=== PATIENT | female | born 1945 | race Caucasian/White ===

== ENCOUNTER 2017-07-29 09:54 | Inpatient (IN) | payer OTHER ==
[~2017-07-29] VITALS: Ht 170.2 cm; Wt 59.6 kg
[~2017-07-29 09:54] MED LIST: (None)20 M1 PO; ALBU3IS INH; ALBU90OI INH; ALBU90OI6 INH; AMOCLA875 PO; AZIT250 PO; CLIMARA1 PATCH.W1 TD; CYCL10 PO; DALIRESP500 MCG PO; Diflucan100 MG PO; FLUSAL2505 INH; HYDR-86; HYDR-86 PO; HYDR1TAB94 PO; IBUP800 PO; Indapamide1.25 MG PO; LEVSOD50 PO; LEVSOD88 PO; METPRE4DP PO; SULTRIDS PO; TIOT18 INH; Ventolin Soln3 ML INH; ZOLP10 PO; Zithromax250 MG PO
[2017-07-29] MEDS ORDERED: TOBRAMYCIN300 MG/5 M IH (10:31)
[2017-07-29 10:34] LABS: BASOPHILS ABSOLUTE AUTO 0.07 K/mm3 (0.00-0.23); BASOPHILS PERCENT AUTO 1 % (0-2); EOSINOPHILS ABSOLUTE AUTO 0.26 K/mm3 (0.00-0.68); EOSINOPHILS PERCENT AUTO 3 % (0-6); Hematocrit 42.3 % (33.0-51.0); Hemoglobin 13.4 g/dL (11.5-16.0); IMMATURE GRAN ABSOLUTE AUTO 0.03 K/mm3 (0.00-0.10); IMMATURE GRAN PERCENT AUTO 0 % (0-1); LYMPHOCYTES ABSOLUTE AUTO 2.51 K/mm3 (0.84-5.20); LYMPHOCYTES PERCENT AUTO 31 % (21-46); MONOCYTES ABSOLUTE AUTO 1.31 K/mm3 (0.16-1.47); MONOCYTES PERCENT AUTO 16 % (4-13); Mean Corpuscular HGB 29.5 pg (26.0-34.0); Mean Corpuscular HGB Conc 31.7 g/dL (31.5-36.5); Mean Corpuscular Volume 93 fL (80-100); Mean Platelet Volume 10.2 fL (9.1-12.4); NEUTROPHILS ABSOLUTE AUTO 3.98 K/mm3 (1.96-9.15); NEUTROPHILS PERCENT AUTO 49 % (41-73); Platelet Count 334 K/mm3 (150-400); RDW Coefficient Variation 13.7 % (11.7-14.2); RDW Standard Deviation 46.6 fL (35.1-46.3); Red Blood Cell Count 4.55 M/mm3 (3.80-5.20); White Blood Cell Count 8.16 K/mm3 (4.00-11.30)
[2017-07-29 10:58] LABS: Alanine Aminotransfer (ALT/SGP 24 U/L (12-78); Albumin, Blood 3.3 g/dL (3.4-5.0); Albumin/Globulin Ratio 1.1 (0.8-1.8); Alk Phos 67 U/L (50-136); Anion Gap 4 mmol/L (6-16); Aspartate Aminotrans (AST/SGOT 18 U/L (12-37); Bilirubin, Total 0.6 mg/dL (0.1-1.0); Blood Urea Nitrogen 15 mg/dL (8-24); Bun/Creatinine Ratio 35.8 (12.0-20.0); CO2, Blood 36 mmol/L (21-32); Calcium, Blood 8.3 mg/dL (8.5-10.1); Chloride, Blood 93 mmol/L (98-108); Creatinine, Blood 0.42 mg/dL (0.40-1.00); Globulin, Blood 3.1 g/dL (2.2-4.0); Glomerular Filtration Rate >60 (60-); Glucose, Blood 78 mg/dL (70-99); Potassium, Blood 3.6 mmol/L (3.5-5.5); Sodium, Blood 133 mmol/L (136-145); Total Protein, Blood 6.4 g/dL (6.4-8.2); Troponin I <0.015 ng/mL (0.000-0.040)
[2017-07-30 05:59] LABS: BASOPHILS PERCENT AUTO 0 % (0-2); EOSINOPHILS PERCENT AUTO 0 % (0-6); Hematocrit 42.4 % (33.0-51.0); Hemoglobin 13.7 g/dL (11.5-16.0); IMMATURE GRAN ABSOLUTE AUTO 0.01 K/mm3 (0.00-0.10); IMMATURE GRAN PERCENT AUTO 0 % (0-1); LYMPHOCYTES ABSOLUTE AUTO 0.95 K/mm3 (0.84-5.20); LYMPHOCYTES PERCENT AUTO 15 % (21-46); MONOCYTES ABSOLUTE AUTO 0.19 K/mm3 (0.16-1.47); MONOCYTES PERCENT AUTO 3 % (4-13); Mean Corpuscular HGB 29.7 pg (26.0-34.0); Mean Corpuscular HGB Conc 32.3 g/dL (31.5-36.5); Mean Corpuscular Volume 92 fL (80-100); NEUTROPHILS PERCENT AUTO 82 % (41-73); Platelet Count 313 K/mm3 (150-400); RDW Coefficient Variation 13.8 % (11.7-14.2); RDW Standard Deviation 45.9 fL (35.1-46.3); Red Blood Cell Count 4.62 M/mm3 (3.80-5.20); White Blood Cell Count 6.35 K/mm3 (4.00-11.30)
[2017-07-30 07:42] LABS: Albumin, Blood 3.2 g/dL (3.4-5.0); Anion Gap 9 mmol/L (6-16); Blood Urea Nitrogen 10 mg/dL (8-24); CO2, Blood 26 mmol/L (21-32); Calcium, Blood 8.5 mg/dL (8.5-10.1); Chloride, Blood 100 mmol/L (98-108); Creatinine, Blood 0.37 mg/dL (0.40-1.00); Glomerular Filtration Rate >60 (60-); Glucose, Blood 168 mg/dL (70-99); Phosphorus, Blood 3.7 mg/dL (2.5-4.9); Sodium, Blood 135 mmol/L (136-145)
[2017-07-30 16:38] LABS: Tobramycin, Random 0.4 ug/mL
[2017-08-01 19:21] LABS: Tobramycin, Trough <0.3 ug/mL (0.0-1.9)
[2017-08-02] MEDS ORDERED: GUAI600T33 PO (12:23)
[2017-08-02] MEDS ORDERED: CLIMARA1 EACH TOP (12:23)
[2017-08-02] MEDS ORDERED: SENN187 PO (12:26)
[2017-08-02] MEDS ORDERED: GAVILAX17 GM PO (12:26)
[2017-08-02] MEDS ORDERED: DELTASONE20 MG PO (12:26)
[2017-08-02] MEDS ORDERED: [UNRECOGNIZED DRUG - OTHER] VAG (12:28)
[2017-08-02] MEDS ORDERED: LEVFLO500 PO (12:28)
[2017-08-02] MEDS ORDERED: PRED20 PO (12:29)
[2017-08-02] MEDS ORDERED: Tobramycin60 MG/50 M IV (12:31)
[2017-08-02 14:01] LABS: Tobramycin, Random <0.3 ug/mL
[2017-08-03] MEDS ORDERED: CYCL10 PO (16:56)
[2017-08-03] MEDS ORDERED: CLIMARA1 PATCH.W1 TOP (17:46)
[2017-08-03] MEDS ORDERED: DALIRESP500 MCG PO (17:46)
[2017-08-03] MEDS ORDERED: Hair, Skin & N1 EACH PO (17:47)
[2017-08-03] MEDS ORDERED: CHOL10002 PO (17:48)
[2017-08-03] MEDS ORDERED: Echinacea500 MG PO (17:49)
[2017-08-03] MEDS ORDERED: Super B Comple150 MG PO (17:49)
[2018-02-26] MEDS ORDERED: ALBUTEROL INH (13:49)
[2018-02-26] MEDS ORDERED: MORP20L PO (13:52)
[2018-02-26] MEDS ORDERED: AZIT250 PO (13:53)
[2018-02-26] MEDS ORDERED: SPIRIVA RESPIMAT4 GM INH (13:54)
[2018-02-26] MEDS ORDERED: ESTRADIOL1 EAC1 TD (13:54)
[2018-02-26] MEDS ORDERED: ALBU3IS INH (13:55)
[2018-02-26] MEDS ORDERED: LORA.5 PO (13:56)
[2018-02-26] MEDS ORDERED: COMPAZINE10 MG PO (13:58)
[2018-02-26] MEDS ORDERED: Zofran Odt8 MG SL (16:33)
== END 2017-08-02 19:41 | disposition home or self-care (01) | DRG 189 ==
LOC: ER 09:54 → MEDS 13:31 → ENPENDDIS 08-02 10:00 → MEDS 08-02 19:41
PROVIDERS: Emergency Medicine; Family Medicine
PROC: 02HV33Z Insertion of Infusion Device into Superior Vena Cava, Percutaneous Approach (ICD-10-PCS; principal; 2017-08-01)
PROC: B548ZZA Ultrasonography of Superior Vena Cava, Guidance (ICD-10-PCS; 2017-08-01)
DX: J96.01 Acute respiratory failure with hypoxia (principal); B96.5 Pseudomonas (aeruginosa) (mallei) (pseudomallei) as the cause of diseases classified elsewhere; F11.20 Opioid dependence, uncomplicated; Z99.81 Dependence on supplemental oxygen; J44.1 Chronic obstructive pulmonary disease with (acute) exacerbation; B96.1 Klebsiella pneumoniae [K. pneumoniae] as the cause of diseases classified elsewhere; I10 Essential (primary) hypertension; E78.5 Hyperlipidemia, unspecified; G89.4 Chronic pain syndrome; F41.9 Anxiety disorder, unspecified; E03.9 Hypothyroidism, unspecified; R04.0 Epistaxis; J34.89 Other specified disorders of nose and nasal sinuses; Z88.1 Allergy status to other antibiotic agents; Z88.5 Allergy status to narcotic agent; Z87.891 Personal history of nicotine dependence; Z79.51 Long term (current) use of inhaled steroids; Z79.899 Other long term (current) drug therapy
CPT/HCPCS: 36415; 36569; 71020; 80053; 80069; 80200; 84484; 85025; 93005; 93010; 94010; 94640; 94664; 94667; 94668; 94760; 96361; 96374; 98960; 99285; C1751; J1956; J2930; J3260; J7030; J7050; Q2038

== ENCOUNTER 2017-08-03 00:38 | Day surgery (SDC) | payer OTHER ==
[~2017-08-03 00:38] MED LIST changes: +CLIMARA1 EACH TOP; +DELTASONE20 MG PO; +GAVILAX17 GM PO; +GUAI600T33 PO; +LEVFLO500 PO; +PRED20 PO; +SENN187 PO; +TOBRAMYCIN300 MG/5 M IH; +Tobramycin60 MG/50 M IV; +[UNRECOGNIZED DRUG - OTHER] VAG
[2017-08-03] MEDS ORDERED: CYCL10 PO (16:56)
[2017-08-03] MEDS ORDERED: CLIMARA1 PATCH.W1 TOP (17:46)
[2017-08-03] MEDS ORDERED: DALIRESP500 MCG PO (17:46)
[2017-08-03] MEDS ORDERED: Hair, Skin & N1 EACH PO (17:47)
[2017-08-03] MEDS ORDERED: CHOL10002 PO (17:48)
[2017-08-03] MEDS ORDERED: Echinacea500 MG PO (17:49)
[2017-08-03] MEDS ORDERED: Super B Comple150 MG PO (17:49)
[2018-02-26] MEDS ORDERED: ALBUTEROL INH (13:49)
[2018-02-26] MEDS ORDERED: MORP20L PO (13:52)
[2018-02-26] MEDS ORDERED: AZIT250 PO (13:53)
[2018-02-26] MEDS ORDERED: SPIRIVA RESPIMAT4 GM INH (13:54)
[2018-02-26] MEDS ORDERED: ESTRADIOL1 EAC1 TD (13:54)
[2018-02-26] MEDS ORDERED: ALBU3IS INH (13:55)
[2018-02-26] MEDS ORDERED: LORA.5 PO (13:56)
[2018-02-26] MEDS ORDERED: COMPAZINE10 MG PO (13:58)
[2018-02-26] MEDS ORDERED: Zofran Odt8 MG SL (16:33)
== END 2017-08-03 17:30 | disposition home or self-care (01) ==
LOC: ATC 00:38
DX: J44.1 Chronic obstructive pulmonary disease with (acute) exacerbation (principal); J15.1 Pneumonia due to Pseudomonas; J34.89 Other specified disorders of nose and nasal sinuses; I10 Essential (primary) hypertension; E03.9 Hypothyroidism, unspecified; E78.5 Hyperlipidemia, unspecified; Z79.899 Other long term (current) drug therapy; Z88.1 Allergy status to other antibiotic agents; Z87.891 Personal history of nicotine dependence
CPT/HCPCS: 96365; 96375; J1580; J2930; J3260; J7050

== ENCOUNTER 2017-08-04 00:40 | Day surgery (SDC) | payer OTHER ==
[~2017-08-04 00:40] MED LIST changes: +CHOL10002 PO; +CLIMARA1 PATCH.W1 TOP; +Echinacea500 MG PO; +Hair, Skin & N1 EACH PO; +Super B Comple150 MG PO
[2018-02-26] MEDS ORDERED: ALBUTEROL INH (13:49)
[2018-02-26] MEDS ORDERED: MORP20L PO (13:52)
[2018-02-26] MEDS ORDERED: AZIT250 PO (13:53)
[2018-02-26] MEDS ORDERED: ESTRADIOL1 EAC1 TD (13:54)
[2018-02-26] MEDS ORDERED: SPIRIVA RESPIMAT4 GM INH (13:54)
[2018-02-26] MEDS ORDERED: ALBU3IS INH (13:55)
[2018-02-26] MEDS ORDERED: LORA.5 PO (13:56)
[2018-02-26] MEDS ORDERED: COMPAZINE10 MG PO (13:58)
[2018-02-26] MEDS ORDERED: Zofran Odt8 MG SL (16:33)
== END 2017-08-04 16:47 | disposition home or self-care (01) ==
LOC: ATC 00:40
DX: J44.1 Chronic obstructive pulmonary disease with (acute) exacerbation (principal); J15.1 Pneumonia due to Pseudomonas; I10 Essential (primary) hypertension; E03.9 Hypothyroidism, unspecified; E78.5 Hyperlipidemia, unspecified; Z79.899 Other long term (current) drug therapy; Z88.1 Allergy status to other antibiotic agents; Z88.8 Allergy status to other drugs, medicaments and biological substances; Z87.891 Personal history of nicotine dependence
CPT/HCPCS: 96365; 96375; J2930; J3260

== ENCOUNTER 2017-08-05 00:18 | Day surgery (SDC) | payer OTHER ==
[2017-08-05 16:19] LABS: Creatinine, Blood 0.44 mg/dL (0.40-1.00); Tobramycin, Trough <0.3 ug/mL (0.0-1.9)
[2018-02-26] MEDS ORDERED: ALBUTEROL INH (13:49)
[2018-02-26] MEDS ORDERED: MORP20L PO (13:52)
[2018-02-26] MEDS ORDERED: AZIT250 PO (13:53)
[2018-02-26] MEDS ORDERED: ESTRADIOL1 EAC1 TD (13:54)
[2018-02-26] MEDS ORDERED: SPIRIVA RESPIMAT4 GM INH (13:54)
[2018-02-26] MEDS ORDERED: ALBU3IS INH (13:55)
[2018-02-26] MEDS ORDERED: LORA.5 PO (13:56)
[2018-02-26] MEDS ORDERED: COMPAZINE10 MG PO (13:58)
[2018-02-26] MEDS ORDERED: Zofran Odt8 MG SL (16:33)
== END 2017-08-05 17:30 | disposition home or self-care (01) ==
LOC: ATC 00:18
PROVIDERS: Family Medicine
DX: J44.1 Chronic obstructive pulmonary disease with (acute) exacerbation (principal); J15.1 Pneumonia due to Pseudomonas; J34.89 Other specified disorders of nose and nasal sinuses; R04.0 Epistaxis
CPT/HCPCS: 80200; 82565; 96365; 96375; J2930; J3260

== ENCOUNTER 2017-08-06 00:10 | Day surgery (SDC) | payer OTHER ==
[2018-02-26] MEDS ORDERED: ALBUTEROL INH (13:49)
[2018-02-26] MEDS ORDERED: MORP20L PO (13:52)
[2018-02-26] MEDS ORDERED: AZIT250 PO (13:53)
[2018-02-26] MEDS ORDERED: ESTRADIOL1 EAC1 TD (13:54)
[2018-02-26] MEDS ORDERED: SPIRIVA RESPIMAT4 GM INH (13:54)
[2018-02-26] MEDS ORDERED: ALBU3IS INH (13:55)
[2018-02-26] MEDS ORDERED: LORA.5 PO (13:56)
[2018-02-26] MEDS ORDERED: COMPAZINE10 MG PO (13:58)
[2018-02-26] MEDS ORDERED: Zofran Odt8 MG SL (16:33)
== END 2017-08-06 16:13 | disposition home or self-care (01) ==
LOC: ATC 00:10
DX: J44.1 Chronic obstructive pulmonary disease with (acute) exacerbation (principal); I10 Essential (primary) hypertension; E03.9 Hypothyroidism, unspecified; E78.5 Hyperlipidemia, unspecified; Z79.899 Other long term (current) drug therapy; Z88.1 Allergy status to other antibiotic agents
CPT/HCPCS: 96365; 96375; J2930; J3260

== ENCOUNTER 2017-08-07 00:27 | Day surgery (SDC) | payer OTHER ==
[2018-02-26] MEDS ORDERED: ALBUTEROL INH (13:49)
[2018-02-26] MEDS ORDERED: MORP20L PO (13:52)
[2018-02-26] MEDS ORDERED: AZIT250 PO (13:53)
[2018-02-26] MEDS ORDERED: ESTRADIOL1 EAC1 TD (13:54)
[2018-02-26] MEDS ORDERED: SPIRIVA RESPIMAT4 GM INH (13:54)
[2018-02-26] MEDS ORDERED: ALBU3IS INH (13:55)
[2018-02-26] MEDS ORDERED: LORA.5 PO (13:56)
[2018-02-26] MEDS ORDERED: COMPAZINE10 MG PO (13:58)
[2018-02-26] MEDS ORDERED: Zofran Odt8 MG SL (16:33)
== END 2017-08-07 22:52 | disposition home or self-care (01) ==
LOC: ATC 00:27
DX: J44.1 Chronic obstructive pulmonary disease with (acute) exacerbation (principal); I10 Essential (primary) hypertension; F32.9 Major depressive disorder, single episode, unspecified; E03.9 Hypothyroidism, unspecified; G89.4 Chronic pain syndrome; E78.5 Hyperlipidemia, unspecified
CPT/HCPCS: 96365; 96375; J2930; J3260

== ENCOUNTER 2017-08-08 00:42 | Day surgery (SDC) | payer OTHER ==
[2017-08-08 15:38] LABS: Tobramycin, Random <0.3 ug/mL
[2018-02-26] MEDS ORDERED: ALBUTEROL INH (13:49)
[2018-02-26] MEDS ORDERED: MORP20L PO (13:52)
[2018-02-26] MEDS ORDERED: AZIT250 PO (13:53)
[2018-02-26] MEDS ORDERED: ESTRADIOL1 EAC1 TD (13:54)
[2018-02-26] MEDS ORDERED: SPIRIVA RESPIMAT4 GM INH (13:54)
[2018-02-26] MEDS ORDERED: ALBU3IS INH (13:55)
[2018-02-26] MEDS ORDERED: LORA.5 PO (13:56)
[2018-02-26] MEDS ORDERED: COMPAZINE10 MG PO (13:58)
[2018-02-26] MEDS ORDERED: Zofran Odt8 MG SL (16:33)
== END 2017-08-08 22:39 | disposition home or self-care (01) ==
LOC: ATC 00:42
PROVIDERS: Family Medicine
DX: J44.1 Chronic obstructive pulmonary disease with (acute) exacerbation (principal); I10 Essential (primary) hypertension; F32.9 Major depressive disorder, single episode, unspecified; E03.9 Hypothyroidism, unspecified; E78.5 Hyperlipidemia, unspecified; Z87.891 Personal history of nicotine dependence; R04.0 Epistaxis
CPT/HCPCS: 80200; 96365; 96375; J2930; J3260

== ENCOUNTER 2017-08-11 11:06 | Inpatient (IN) | payer OTHER ==
[~2017-08-11] VITALS: Ht 170.2 cm; Wt 58.2 kg
[2017-08-11 11:47] LABS: BASOPHILS ABSOLUTE AUTO 0.02 K/mm3 (0.00-0.23); BASOPHILS PERCENT AUTO 0 % (0-2); EOSINOPHILS ABSOLUTE AUTO 0.09 K/mm3 (0.00-0.68); EOSINOPHILS PERCENT AUTO 1 % (0-6); Hematocrit 41.1 % (33.0-51.0); Hemoglobin 12.9 g/dL (11.5-16.0); IMMATURE GRAN ABSOLUTE AUTO 0.08 K/mm3 (0.00-0.10); IMMATURE GRAN PERCENT AUTO 1 % (0-1); LYMPHOCYTES ABSOLUTE AUTO 2.14 K/mm3 (0.84-5.20); LYMPHOCYTES PERCENT AUTO 25 % (21-46); MONOCYTES ABSOLUTE AUTO 1.07 K/mm3 (0.16-1.47); MONOCYTES PERCENT AUTO 13 % (4-13); Mean Corpuscular HGB 29.5 pg (26.0-34.0); Mean Corpuscular HGB Conc 31.4 g/dL (31.5-36.5); Mean Corpuscular Volume 94 fL (80-100); Mean Platelet Volume 9.8 fL (9.1-12.4); NEUTROPHILS ABSOLUTE AUTO 5.09 K/mm3 (1.96-9.15); NEUTROPHILS PERCENT AUTO 60 % (41-73); Platelet Count 216 K/mm3 (150-400); RDW Coefficient Variation 14.1 % (11.7-14.2); RDW Standard Deviation 48.6 fL (35.1-46.3); Red Blood Cell Count 4.37 M/mm3 (3.80-5.20); White Blood Cell Count 8.49 K/mm3 (4.00-11.30)
[2017-08-11 12:08] LABS: Alanine Aminotransfer (ALT/SGP 25 U/L (12-78); Albumin, Blood 2.8 g/dL (3.4-5.0); Albumin/Globulin Ratio 0.8 (0.8-1.8); Alk Phos 86 U/L (50-136); Anion Gap 5 mmol/L (6-16); Aspartate Aminotrans (AST/SGOT 19 U/L (12-37); Bilirubin, Total 0.2 mg/dL (0.1-1.0); Blood Urea Nitrogen 12 mg/dL (8-24); Bun/Creatinine Ratio 35.2 (12.0-20.0); CO2, Blood 38 mmol/L (21-32); Calcium, Blood 8.3 mg/dL (8.5-10.1); Chloride, Blood 94 mmol/L (98-108); Creatinine, Blood 0.34 mg/dL (0.40-1.00); Globulin, Blood 3.3 g/dL (2.2-4.0); Glomerular Filtration Rate >60 (60-); Glucose, Blood 103 mg/dL (70-99); Potassium, Blood 3.4 mmol/L (3.5-5.5); Sodium, Blood 137 mmol/L (136-145); Total Protein, Blood 6.1 g/dL (6.4-8.2)
[2017-08-11] MEDS ORDERED: METPRE4DP PO (13:56)
[2017-08-12 05:12] LABS: BASOPHILS PERCENT AUTO 0 % (0-2); EOSINOPHILS PERCENT AUTO 0 % (0-6); Hematocrit 40.2 % (33.0-51.0); Hemoglobin 12.5 g/dL (11.5-16.0); IMMATURE GRAN ABSOLUTE AUTO 0.03 K/mm3 (0.00-0.10); IMMATURE GRAN PERCENT AUTO 1 % (0-1); LYMPHOCYTES ABSOLUTE AUTO 0.71 K/mm3 (0.84-5.20); LYMPHOCYTES PERCENT AUTO 14 % (21-46); MONOCYTES ABSOLUTE AUTO 0.27 K/mm3 (0.16-1.47); MONOCYTES PERCENT AUTO 5 % (4-13); Mean Corpuscular HGB 29.4 pg (26.0-34.0); Mean Corpuscular HGB Conc 31.1 g/dL (31.5-36.5); Mean Corpuscular Volume 95 fL (80-100); Mean Platelet Volume 9.8 fL (9.1-12.4); NEUTROPHILS PERCENT AUTO 80 % (41-73); Platelet Count 231 K/mm3 (150-400); RDW Coefficient Variation 14.1 % (11.7-14.2); RDW Standard Deviation 48.4 fL (35.1-46.3); Red Blood Cell Count 4.25 M/mm3 (3.80-5.20); White Blood Cell Count 5.01 K/mm3 (4.00-11.30)
[2017-08-12 05:35] LABS: Anion Gap 2 mmol/L (6-16); Blood Urea Nitrogen 12 mg/dL (8-24); Bun/Creatinine Ratio 38.8 (12.0-20.0); CO2, Blood 36 mmol/L (21-32); Chloride, Blood 100 mmol/L (98-108); Creatinine, Blood 0.31 mg/dL (0.40-1.00); Glomerular Filtration Rate >60 (60-); Glucose, Blood 146 mg/dL (70-99); Potassium, Blood 4.3 mmol/L (3.5-5.5); Sodium, Blood 138 mmol/L (136-145); Troponin I <0.015 ng/mL (0.000-0.040)
[2017-08-13 05:10] LABS: PO2 Arterial 99.3 mmHg (80-100); pH Blood Arterial 7.34 (7.35-7.45)
[2017-08-13 05:11] LABS: PCO2 Arterial 70.2 mmHg (35-45)
[2017-08-13 06:00] LABS: Anion Gap 2 mmol/L (6-16); Blood Urea Nitrogen 15 mg/dL (8-24); Bun/Creatinine Ratio 56.8 (12.0-20.0); CO2, Blood 37 mmol/L (21-32); Calcium, Blood 8.3 mg/dL (8.5-10.1); Chloride, Blood 99 mmol/L (98-108); Creatinine, Blood 0.26 mg/dL (0.40-1.00); Glomerular Filtration Rate >60 (60-); Glucose, Blood 119 mg/dL (70-99); Potassium, Blood 4.5 mmol/L (3.5-5.5); Sodium, Blood 138 mmol/L (136-145)
[2017-08-14 06:35] LABS: Anion Gap 3 mmol/L (6-16); Blood Urea Nitrogen 14 mg/dL (8-24); Bun/Creatinine Ratio 50.7 (12.0-20.0); CO2, Blood 39 mmol/L (21-32); Calcium, Blood 8.5 mg/dL (8.5-10.1); Chloride, Blood 96 mmol/L (98-108); Creatinine, Blood 0.28 mg/dL (0.40-1.00); Glomerular Filtration Rate >60 (60-); Glucose, Blood 112 mg/dL (70-99); Potassium, Blood 4.3 mmol/L (3.5-5.5); Sodium, Blood 138 mmol/L (136-145)
[2017-08-15 05:40] LABS: Anion Gap 2 mmol/L (6-16); Blood Urea Nitrogen 20 mg/dL (8-24); Bun/Creatinine Ratio 57.3 (12.0-20.0); CO2, Blood 39 mmol/L (21-32); Calcium, Blood 8.3 mg/dL (8.5-10.1); Chloride, Blood 96 mmol/L (98-108); Creatinine, Blood 0.35 mg/dL (0.40-1.00); Glomerular Filtration Rate >60 (60-); Glucose, Blood 108 mg/dL (70-99); Potassium, Blood 4.3 mmol/L (3.5-5.5); Sodium, Blood 137 mmol/L (136-145)
[2017-08-15] MEDS ORDERED: AZIT500 PO (14:33)
[2017-08-15] MEDS ORDERED: ACET325 PO (14:35)
[2017-08-15] MEDS ORDERED: Paxil20 MG PO (14:37)
[2017-08-15] MEDS ORDERED: LORA.5 PO (14:40)
[2017-08-16 17:51] LABS: Aspergillus Ag Index 0.746 Index (<0.500)
[2018-02-26] MEDS ORDERED: ALBUTEROL INH (13:49)
[2018-02-26] MEDS ORDERED: MORP20L PO (13:52)
[2018-02-26] MEDS ORDERED: AZIT250 PO (13:53)
[2018-02-26] MEDS ORDERED: SPIRIVA RESPIMAT4 GM INH (13:54)
[2018-02-26] MEDS ORDERED: ESTRADIOL1 EAC1 TD (13:54)
[2018-02-26] MEDS ORDERED: ALBU3IS INH (13:55)
[2018-02-26] MEDS ORDERED: LORA.5 PO (13:56)
[2018-02-26] MEDS ORDERED: COMPAZINE10 MG PO (13:58)
[2018-02-26] MEDS ORDERED: Zofran Odt8 MG SL (16:33)
== END 2017-08-15 16:39 | disposition home or self-care (01) | DRG 189 ==
LOC: ER 11:06 → ERHOLD 14:57 → PCU 14:57
PROVIDERS: Internal Medicine Critical Care Medicine; Internal Medicine Endocrinology, Diabetes & Metabolism; Physician Assistant
PROC: 5A09457 Assistance with Respiratory Ventilation, 24-96 Consecutive Hours, Continuous Positive Airway Pressure (ICD-10-PCS; principal; 2017-08-11)
DX: J96.21 Acute and chronic respiratory failure with hypoxia (principal); B96.5 Pseudomonas (aeruginosa) (mallei) (pseudomallei) as the cause of diseases classified elsewhere; F11.20 Opioid dependence, uncomplicated; J44.1 Chronic obstructive pulmonary disease with (acute) exacerbation; B96.1 Klebsiella pneumoniae [K. pneumoniae] as the cause of diseases classified elsewhere; I10 Essential (primary) hypertension; E78.5 Hyperlipidemia, unspecified; G89.4 Chronic pain syndrome; G47.00 Insomnia, unspecified; F41.9 Anxiety disorder, unspecified; Z87.891 Personal history of nicotine dependence; Z88.1 Allergy status to other antibiotic agents; Z88.8 Allergy status to other drugs, medicaments and biological substances; Z79.51 Long term (current) use of inhaled steroids; Z79.899 Other long term (current) drug therapy
CPT/HCPCS: 36600; 71046; 80048; 80053; 82785; 82803; 84145; 84484; 85025; 87070; 87077; 87106; 87186; 87205; 87305; 93005; 93010; 93971; 94640; 94644; 94660; 94760; 94762; 96361; 96365; 96374; 96375; 99285; J0696; J1650; J2060; J2920; J2930; J3260; J3480; J7030

== ENCOUNTER 2017-09-18 19:24 | Emergency (ER) | payer MEDICARE, OTHER ==
[~2017-09-18] VITALS: Ht 170.2 cm; Wt 59.0 kg
[~2017-09-18 19:24] MED LIST changes: +ACET325 PO; +AZIT500 PO; +LORA.5 PO; +Paxil20 MG PO
[2018-02-26] MEDS ORDERED: ALBUTEROL INH (13:49)
[2018-02-26] MEDS ORDERED: MORP20L PO (13:52)
[2018-02-26] MEDS ORDERED: AZIT250 PO (13:53)
[2018-02-26] MEDS ORDERED: SPIRIVA RESPIMAT4 GM INH (13:54)
[2018-02-26] MEDS ORDERED: ESTRADIOL1 EAC1 TD (13:54)
[2018-02-26] MEDS ORDERED: ALBU3IS INH (13:55)
[2018-02-26] MEDS ORDERED: LORA.5 PO (13:56)
[2018-02-26] MEDS ORDERED: COMPAZINE10 MG PO (13:58)
[2018-02-26] MEDS ORDERED: Zofran Odt8 MG SL (16:33)
== END 2017-09-18 21:32 | disposition home or self-care (01) ==
LOC: ER 19:24
DX: R04.0 Epistaxis (principal); J44.9 Chronic obstructive pulmonary disease, unspecified; Z87.891 Personal history of nicotine dependence; Z88.1 Allergy status to other antibiotic agents; Z88.5 Allergy status to narcotic agent; Z88.8 Allergy status to other drugs, medicaments and biological substances; Z79.899 Other long term (current) drug therapy; Z90.710 Acquired absence of both cervix and uterus
CPT/HCPCS: 30901; 99283

== ENCOUNTER 2018-09-24 22:02 | Emergency (ER) | payer OTHER ==
[~2018-09-24] VITALS: Ht 170.2 cm; Wt 60.3 kg
[~2018-09-24 22:02] MED LIST changes: +ALBUTEROL INH; +COMPAZINE10 MG PO; +ESTRADIOL1 EAC1 TD; +MORP20L PO; +SPIRIVA RESPIMAT4 GM INH; +Zofran Odt8 MG SL
== END 2018-09-25 03:21 | disposition home or self-care (01) ==
LOC: ER 22:02
DX: R06.02 Shortness of breath (principal); Z99.81 Dependence on supplemental oxygen; Z88.5 Allergy status to narcotic agent; Z88.1 Allergy status to other antibiotic agents; Z88.8 Allergy status to other drugs, medicaments and biological substances; Z79.2 Long term (current) use of antibiotics; Z79.899 Other long term (current) drug therapy; Z87.891 Personal history of nicotine dependence

== ENCOUNTER → 2019-12-25 | Outpatient (CLI) | payer OTHER | END | disposition home or self-care (01) | LOC: LAB SHORT 12:39 → LAB 12:39 | DX: J18.9 Pneumonia, unspecified organism (principal) | CPT/HCPCS: 87070; 87077; 87186; 87205 ==

== ENCOUNTER → 2020-08-11 | Outpatient (CLI) | payer OTHER ==
[2020-08-11 16:40] LABS: BASOPHILS ABSOLUTE AUTO 0.06 K/mm3 (0.00-0.23); BASOPHILS PERCENT AUTO 1 % (0-2); EOSINOPHILS ABSOLUTE AUTO 0.22 K/mm3 (0.00-0.68); EOSINOPHILS PERCENT AUTO 3 % (0-6); Hematocrit 40.5 % (33.0-51.0); Hemoglobin 11.5 g/dL (11.5-16.0); IMMATURE GRAN ABSOLUTE AUTO 0.02 K/mm3 (0.00-0.10); IMMATURE GRAN PERCENT AUTO 0 % (0-1); LYMPHOCYTES ABSOLUTE AUTO 2.16 K/mm3 (0.84-5.20); LYMPHOCYTES PERCENT AUTO 29 % (21-46); MONOCYTES ABSOLUTE AUTO 1.25 K/mm3 (0.16-1.47); MONOCYTES PERCENT AUTO 17 % (4-13); Mean Corpuscular HGB Conc 28.4 g/dL (31.5-36.5); Mean Corpuscular Volume 99 fL (80-100); Mean Platelet Volume 11.1 fL (9.1-12.4); NEUTROPHILS ABSOLUTE AUTO 3.82 K/mm3 (1.96-9.15); NEUTROPHILS PERCENT AUTO 51 % (41-73); Platelet Count 320 K/mm3 (150-400); RDW Coefficient Variation 12.2 % (11.7-14.2); RDW Standard Deviation 44.4 fL (35.1-46.3); White Blood Cell Count 7.53 K/mm3 (4.00-11.30)
[2020-08-11 16:57] LABS: Alanine Aminotransfer (ALT/SGP 19 U/L (12-78); Albumin, Blood 3.3 g/dL (3.4-5.0); Alk Phos 68 U/L (50-136); Anion Gap 6 mmol/L (6-16); Aspartate Aminotrans (AST/SGOT 10 U/L (12-37); Bilirubin, Total 0.3 mg/dL (0.1-1.0); Blood Urea Nitrogen 11 mg/dL (8-24); Bun/Creatinine Ratio 20.7 (12.0-20.0); CO2, Blood 42 mmol/L (21-32); Calcium, Blood 9.7 mg/dL (8.5-10.1); Chloride, Blood 89 mmol/L (98-108); Creatinine, Blood 0.53 mg/dL (0.40-1.00); Globulin, Blood 3.3 g/dL (2.2-4.0); Glomerular Filtration Rate >60 (60-); Glucose, Blood 132 mg/dL (70-99); Potassium, Blood 3.2 mmol/L (3.5-5.5); Sodium, Blood 137 mmol/L (136-145); Total Protein, Blood 6.6 g/dL (6.4-8.2)
== END | disposition home or self-care (01) ==
LOC: LAB SHORT 15:00 → LAB 15:00
PROVIDERS: Hospitalist
DX: E03.8 Other specified hypothyroidism (principal); I10 Essential (primary) hypertension
CPT/HCPCS: 80053; 84443; 85025

== ENCOUNTER → 2020-12-17 | Outpatient (CLI) | payer OTHER | END | disposition home or self-care (01) | LOC: LAB 12:00 → LAB SHORT 12:00 | DX: R10.9 Unspecified abdominal pain (principal) | CPT/HCPCS: 86140 ==

== ENCOUNTER → 2021-05-21 | Outpatient (CLI) | payer OTHER ==
[2021-05-21 17:44] LABS: BASOPHILS ABSOLUTE AUTO 0.03 K/mm3 (0.00-0.23); BASOPHILS PERCENT AUTO 1 % (0-2); EOSINOPHILS ABSOLUTE AUTO 0.18 K/mm3 (0.00-0.68); EOSINOPHILS PERCENT AUTO 4 % (0-6); Hematocrit 38.8 % (33.0-51.0); Hemoglobin 11.8 g/dL (11.5-16.0); IMMATURE GRAN ABSOLUTE AUTO 0.01 K/mm3 (0.00-0.10); IMMATURE GRAN PERCENT AUTO 0 % (0-1); LYMPHOCYTES ABSOLUTE AUTO 1.85 K/mm3 (0.84-5.20); LYMPHOCYTES PERCENT AUTO 42 % (21-46); MONOCYTES ABSOLUTE AUTO 0.51 K/mm3 (0.16-1.47); MONOCYTES PERCENT AUTO 12 % (4-13); Mean Corpuscular HGB 29.1 pg (26.0-34.0); Mean Corpuscular HGB Conc 30.4 g/dL (31.5-36.5); Mean Corpuscular Volume 96 fL (80-100); NEUTROPHILS ABSOLUTE AUTO 1.83 K/mm3 (1.96-9.15); NEUTROPHILS PERCENT AUTO 41 % (41-73); RDW Coefficient Variation 12.2 % (11.7-14.2); RDW Standard Deviation 43.2 fL (35.1-46.3); Red Blood Cell Count 4.05 M/mm3 (3.80-5.20); White Blood Cell Count 4.41 K/mm3 (4.00-11.30)
[2021-05-21 17:49] LABS: Mean Platelet Volume 11.4 fL (9.1-12.4); Platelet Count 64 K/mm3 (150-400)
[2021-05-21 17:51] LABS: Alanine Aminotransfer (ALT/SGP 18 U/L (12-78); Albumin, Blood 3.5 g/dL (3.4-5.0); Alk Phos 83 U/L (50-136); Anion Gap 2 mmol/L (6-16); Aspartate Aminotrans (AST/SGOT 28 U/L (12-37); Bilirubin, Total 0.3 mg/dL (0.1-1.0); Blood Urea Nitrogen 13 mg/dL (8-24); Bun/Creatinine Ratio 24.5 (12.0-20.0); CO2, Blood 40 mmol/L (21-32); Calcium, Blood 9.4 mg/dL (8.5-10.1); Chloride, Blood 96 mmol/L (98-108); Creatinine, Blood 0.53 mg/dL (0.40-1.00); Globulin, Blood 3.4 g/dL (2.2-4.0); Glomerular Filtration Rate >60 (60-); Glucose, Blood 100 mg/dL (70-99); Potassium, Blood 3.7 mmol/L (3.5-5.5); Sodium, Blood 138 mmol/L (136-145); Total Protein, Blood 6.9 g/dL (6.4-8.2)
== END | disposition home or self-care (01) ==
LOC: LAB SHORT 16:42
PROVIDERS: Hospitalist
DX: J44.1 Chronic obstructive pulmonary disease with (acute) exacerbation (principal); J18.9 Pneumonia, unspecified organism; J96.11 Chronic respiratory failure with hypoxia; R63.4 Abnormal weight loss
CPT/HCPCS: 80053; 84443; 85025